=== PATIENT | male | born 1985 | race Caucasian/White ===

== ENCOUNTER 2016-10-15 17:53 | Emergency (ER) | payer SELFPAY ==
[2016-10-15] MEDS ORDERED: Ketorolac INJ* 60 MG/2 ML VIAL IM ONE (18:55)
--- NOTE | 2016-10-15 19:32 | RAD ---
INDICATION: Back pain COMPARISON: None TECHNIQUE: AP and lateral views were obtained . FINDINGS: Bones: There are no acute bony findings. There are no significant osteoarthritic findings. Alignment: Normal Disc spaces: The disc spaces are well-maintained Soft tissues: There are no soft tissue abnormalities. IMPRESSION: NEGATIVE EXAMINATION.
[2016-10-15 19:42] LABS: Urine Bilirubin Negative (Negative); Urine Glucose Negative (Negative); Urine Nitrite Negative (Negative)
[2016-10-15] MEDS ORDERED: Clindamycin CAP* 150 MG PO ONE (19:56)
[2016-10-15] MEDS ORDERED: Cyclobenzaprine TAB* 10 MG PO ONE (19:56)
[2016-10-15 20:09] VITALS: BP 142/73
--- NOTE | 2016-10-15 20:13 | UC ---
General HPI - HPI Summary HPI Summary: 1) TWO WEEKS OF RIGHT LOWER JAW DENTAL PAIN, SAME RECURING DENTAL PAIN 2009, 2010. 2) TWO DAYS OF MID LOW BACK PAIN. 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 NO DYSURIA. NO FEVER. NO ABDOMINAL PAIN. NO KNOWN TRAUMA. NO LOSS OF CONTROL OF BLADDER OR BOWELS. - History of Current Complaint Chief Complaint: EDDentalPain Stated Complaint: BACK/DENTAL PAIN Time Seen by Provider: 10/15/16 18:33 Hx Obtained From: Patient, Family/Social Worker Health Services Onset/Duration: Lasting Days, Lasting Weeks, Still Present Onset Severity: Moderate Current Severity: Moderate Pain Intensity: 8 Associated Signs & Symptoms: Positive: Back Pain, Other - DENTAL PAIN. Negative : Abdominal Pain, Cough, Chest Pain, Dysuria, Edema, Fever, Headache, Nausea, SOB, Trauma, Vomiting - Allergy/Home Medications Allergies/Adverse Reactions: Allergies Allergy/AdvReac Type Severity Reaction Status Date / Time Diphenhydramine Allergy Severe Itching Verified 09/20/16 16:23 [From Benadryl] Amoxicillin Allergy Difficulty Verified 09/20/16 16:23 Breathing/Wheezing Penicillins [PCN] Allergy Difficulty Verified 09/20/16 16:23 Breathing/Wheezing PMH/Surg Hx/FS Hx/Imm Hx Previously Healthy: Yes Endocrine History Of: Denies: Diabetes, Thyroid Disease, Hyperthyroidism, Hypothyroidism, Dyslipidemia Cardiovascular History Of: Denies: Cardiac Disorders, Hypertension, Pacemaker/ICD, Myocardial Infarction , Congestive Heart Failure, Atrial Fibrillation, Deep Vein Thrombosis, Bleeding Disorders Respiratory History Of: Denies: COPD, Asthma, Bronchitis, Pneumonia, Pulmonary Embolism GI/ History Of: Denies: Gastroesophageal Reflux, Ulcer, Gastrointestinal Bleed, Gall Bladder Disease, Kidney Stones, Diverticulitis, Renal Disease, Urosepsis Neurological History Of: Denies: TIA, CVA, Dementia, Seizures, Migraine Psychological History Of: Denies: Anxiety, Depression, Bipolar Disorder, Schizophrenia, Post Traumatic Stress Disorder Cancer History Of: Denies: Lung Cancer, Colorectal Cancer, Breast Cancer, Prostate Cancer, Cervical Cancer Other History Of: Negative For: HIV, Hepatitis B, Hepatitis C - Surgical History Surgical History: None - Family History Known Family History: Positive: None Negative: Renal Disease - Social History Occupation: Employed Full-time Lives: With Family Alcohol Use: Occasionally Substance Use Type: None Smoking Status (MU): Heavy Every Day Tobacco Smoker Type: Cigarettes Amount Used/How Often: 1 ppd Cessation Counseling: Counseled 3+Min - 10 Min Review of Systems Constitutional: Negative Skin: Negative Eyes: Negative ENT: Dental Pain Respiratory: Negative Cardiovascular: Negative Gastrointestinal: Negative Genitourinary: Negative Motor: Negative Neurovascular: Negative Musculoskeletal: Arthralgia - LOW BACK, Myalgia, Other: - POSITIVE STRAIGHT LEG RAISE 20 DEGREES BILT Neurological: Negative Psychological: Negative All Other Systems Reviewed And Are Negative: Yes Physical Exam Triage Information Reviewed: Yes Appearance: Well-Appearing, Well-Nourished, Pain Distress - MILD Vital Signs: Initial Vital Signs Temp 99.8 F 10/15/16 18:09 Pulse 81 10/15/16 18:09 Resp 18 10/15/16 18:09 BP 152/100 10/15/16 18:09 Pulse Ox 98 10/15/16 18:09 Vital Signs Reviewed: Yes Eye Exam: Normal Eyes: Positive: Conjunctiva Clear ENT Exam: Normal ENT: Positive: Normal ENT inspection Dental Exam: Normal Dental: Positive: Percussion Tenderness @ - #32, Gross Decay/Caries @ Neck exam: Normal Neck: Positive: Supple, Nontender, No Lymphadenopathy Respiratory Exam: Normal Respiratory: Positive: Chest non-tender, Lungs clear, Normal breath sounds, No respiratory distress Cardiovascular Exam: Normal Cardiovascular: Positive: RRR, No Murmur Abdominal Exam: Normal Abdomen Description: Positive: Nontender, No Organomegaly Musculoskeletal: Positive: Strength Intact, ROM Intact, No Edema, Other: - TENDER TO PALPATION INFERIOR L SPINE. POS STRAIGHT LEG RAISE TEST BILATERALLY Neurological Exam: Normal Psychological Exam: Normal Psychological: Positive: Normal Response To Family Skin Exam: Normal Course/Dx - Differential Dx - Multi-Symptom Differential Diagnoses: Other - BACK PAIN; DENTAL PAIN Provider Diagnoses: LOW BACK STRAIN. DENTAL PAIN #32 Discharge - Discharge Plan Condition: Stable Disposition: HOME Prescriptions: Clindamycin Cap(NF) [Cleocin 300 mg Cap(NF)] 300 mg PO TID #21 cap Cyclobenzaprine TAB* [Flexeril TAB*] 10 mg PO BID PRN #14 tab PRN Reason: Spasms Patient Education Materials: Dental Caries (ED), Low Back Strain (ED), Muscle Spasm (ED), Toothache (ED) Referrals: [facility] [Outside] [facility] [facility] [Outside] No Primary Care Phys,NOPCP [Primary Care Provider] - Additional Instructions: PHYSICAL THERAPY REFERRAL: You have been prescribed physical therapy. Treatments may include stretching, exercise, application of heat or cold, and other modalities. After an injury, PT can reduce swelling and pain. In recovery, PT is used to restore mobility and strength. Your specific treatment goals are: Reduction of Swelling (EGS, US, ice as needed) __X___ Pain Reduction (EGS, US, ice as needed) TENS Pack Fitting and Instruction Wound Hydrotherapy ___X__ Preservation of Mobility ___X__ Uatsdin of Mobility ___X__ Strength Uatsdin __X___ Work or Sports Hardening This instruction sheet also serves as your PHYSICAL THERAPY REFERRAL! Please take it with you to the therapist, so he/she will be aware of your diagnosis and treatment plan. You may see the physical therapist of your choice for these treatments, but may wish to check with your insurance to be sure the provider you select is covered. It's important to see the doctor to whom you have been referred for follow up. [facility]: 1 - PAIN HERE
== END 2016-10-15 20:09 | disposition home or self-care (01) ==
LOC: ED 17:53
DX: K08.89 Other specified disorders of teeth and supporting structures (principal); S33.5XXA Sprain of ligaments of lumbar spine, initial encounter; F17.210 Nicotine dependence, cigarettes, uncomplicated; Z88.0 Allergy status to penicillin; X58.XXXA Exposure to other specified factors, initial encounter; Y92.9 Unspecified place or not applicable
CPT/HCPCS: 72100; 81003; 96372; 99282; A9270-GY; J1885

== ENCOUNTER 2016-12-28 12:05 | Emergency (ER) | payer SELFPAY ==
[2016-12-28 14:29] VITALS: BP 145/93
--- NOTE | 2016-12-28 17:18 | RAD ---
INDICATION: Chest congestion, tightness, cough 1 week duration. History of tobacco use. COMPARISON: February 13, 2009 TECHNIQUE: Dual energy PA and routine lateral views of the chest were obtained. REPORT: Mild prominence of the interstitial markings and increased lung volumes without change. No alveolar consolidation, focal pulmonary lesion, or pleural effusion evident. Negative for pneumothorax. The heart, pulmonary vasculature, and mediastinal contours are unremarkable. IMPRESSION: Stigmata of probable chronic obstructive pulmonary disease. No evidence for pneumonia.
--- NOTE | 2017-01-22 13:53 | ED ---
Influenza-Like Illness - HPI Summary HPI Summary: Patient presents with CHEST CONGESTION, WHEEZING, COUGH, LARYNGITIS, FATIGUE, CHILLS/SWEATS AT NIGHT X 1 WEEK. He denies known ill contacts. He has tried over the counter medication without relief. He denies CP, SOB, fever, neck pain or MCKEON. - History of Current Complaint Chief Complaint: EDUpperRespComplaint Time Seen by Provider: 12/28/16 12:15 Hx Obtained From: Patient Onset/Duration: Gradual Onset Severity: Moderate Associated Signs & Symptoms: Cough, Nasal Congestion Related Hx: Smoking - Allergy/Home Medications Allergies/Adverse Reactions: Allergies Allergy/AdvReac Type Severity Reaction Status Date / Time Diphenhydramine Allergy Severe Itching Verified 09/20/16 16:23 [From Benadryl] Amoxicillin Allergy Difficulty Verified 09/20/16 16:23 Breathing/Wheezing Penicillins [PCN] Allergy Difficulty Verified 09/20/16 16:23 Breathing/Wheezing PMH/Surg Hx/FS Hx/Imm Hx Endocrine/Hematology History: Denies: Hx Diabetes, Hx Thyroid Disease Cardiovascular History: Denies: Hx Congestive Heart Failure, Hx Deep Vein Thrombosis, Hx Hypertension , Hx Myocardial Infarction, Hx Pacemaker/ICD Respiratory History: Denies: Hx Asthma, Hx Chronic Obstructive Pulmonary Disease (COPD), Hx Lung Cancer, Hx Pneumonia, Hx Pulmonary Embolism, Other Respiratory Problems/ Disorders GI History: Denies: Hx Gall Bladder Disease, Hx Gastrointestinal Bleed, Hx Ulcer, Hx Urosepsis History: Denies: Hx Kidney Stones, Hx Renal Disease Sensory History: Denies: Hx Contacts or Glasses Opthamlomology History: Denies: Hx Contacts or Glasses Neurological History: Denies: Hx Dementia, Hx Migraine, Hx Seizures, Hx Transient Ischemic Attacks (TIA) Psychiatric History: Reports: Hx of Violent Episodes Against Others Denies: Hx Anxiety, Hx Eating Disorder, Hx Depression, Hx Schizophrenia, Hx Bipolar Disorder Infectious Disease History: No Infectious Disease History: Denies: History Other Infectious Disease, Traveled Outside the [place] in Last 30 Days - Family History Known Family History: Positive: None Negative: Renal Disease - Social History Occupation: Employed Full-time Lives: With Family Alcohol Use: Occasionally Substance Use Type: Reports: None Smoking Status (MU): Heavy Every Day Tobacco Smoker Type: Cigarettes Amount Used/How Often: 1 ppd Cessation Counseling: Patient Advised to Stop Review of Systems Positive: Chills, Fatigue Positive: Nasal Discharge Positive: Cough Negative: Abdominal Pain, Vomiting, Diarrhea, Nausea Negative: Myalgia Negative: Headache, Weakness All Other Systems Reviewed And Are Negative: Yes Physical Exam Triage Information Reviewed: Yes Vital Signs On Initial Exam: Initial Vitals Temp Pulse Resp BP Pulse Ox 97.1 F 99 16 148/88 98 12/28/16 12:07 12/28/16 12:07 12/28/16 12:07 12/28/16 12:07 12/28/16 12:07 Vital Signs Reviewed: Yes Appearance: Positive: Well-Appearing, No Pain Distress, Well-Nourished Skin: Positive: Warm, Skin Color Reflects Adequate Perfusion, Dry, Soft Head/Face: Positive: Normal Head/Face Inspection Eyes: Positive: EOMI, JOSE, Conjunctiva Clear ENT: Positive: Hearing grossly normal, Pharyngeal erythema, Nasal congestion, TMs normal. Negative: Tonsillar swelling, Tonsillar exudate Neck: Positive: Supple, Nontender, No Lymphadenopathy Respiratory/Lung Sounds: Positive: Clear to Auscultation, Breath Sounds Present. Negative: Rales, Rhonchi, Wheezes Cardiovascular: Positive: RRR Abdomen Description: Positive: Nontender, Soft Bowel Sounds: Positive: Present Musculoskeletal: Negative: Edema Left, Edema Right Neurological: Positive: Sensory/Motor Intact, Alert, Oriented to Person Place, Time, [place] Bundle Intact Distally, Normal Gait Psychiatric: Positive: Affect/Mood Appropriate AVPU Assessment: Alert Diagnostics - Vital Signs Vital Signs Temp Pulse Resp BP Pulse Ox 12/28/16 14:28 98.6 F 71 16 145/93 12/28/16 12:17 98.7 F 84 16 146/91 93 12/28/16 12:07 97.1 F 99 16 148/88 98 - Laboratory Lab Results: Lab Results 12/28/16 12/28/16 Range/Units 11:54 12:52 Influenza A (Rapid) Negative (Negative) Influenza B (Rapid) Negative (Negative) Group A Strep Rapid Negative (Negative) Lab Statement: Any lab studies that have been ordered have been reviewed, and results considered in the medical decision making process. - Radiology No standard instances Xray Interpretation: No Acute Changes Radiology Interpretation Completed By: Radiologist Flu Symptom Course/Dx - Diagnoses Differential Diagnosis/HQI/PQRI: Positive: Bronchitis, Broncholiolitis, Influenza, Pneumonia, Upper Respiratory Infection Provider Diagnoses: Pharyngitis Discharge - Discharge Plan Condition: Stable Disposition: HOME Patient Education Materials: Pharyngitis (ED) Forms: *Work Release Referrals: No Primary Care Phys,NOPCP [Primary Care Provider] - Additional Instructions: Please use over the counter medication to help with your symptoms.
== END 2016-12-28 14:28 | disposition home or self-care (01) ==
LOC: ED 12:05
DX: J02.9 Acute pharyngitis, unspecified (principal); R05 Cough; R09.81 Nasal congestion; R11.2 Nausea with vomiting, unspecified; R19.7 Diarrhea, unspecified; R10.9 Unspecified abdominal pain
CPT/HCPCS: 71020; 87502; 87651; 99282

== ENCOUNTER 2017-05-14 04:51 | Emergency (ER) | payer SELFPAY ==
[2017-05-14 05:06] VITALS: BP 184/102
[2017-05-14] MEDS ORDERED: Clindamycin CAP* 150 MG PO ONE (05:52)
[2017-05-14] MEDS ORDERED: HYDROcodone/ACETAMIN 5-325 MG* 1 TAB PO ONE (05:52)
--- NOTE | 2017-05-14 07:00 | ED ---
I, Cristhian,Shelley, scribed for Charly Valdez MD on 05/14/17 at 0554 . Throat Pain/Nasal Congestion - HPI Summary HPI Summary: This 31 y/o male presents to ED for left bottom dental since "some time ago". Pain radiates down to jaw and up to left ear. Filling has fallen out since the time of onset. Pt took IBP without much relief. Pt is currently requesting abx and pain med with urgent rx, stating that pt currently does not have any insurance. Pt is current heavy everyday smoker. Allergy information involving PCN and amoxicillin is reviewed and confirmed with pt. - History of Current Complaint Chief Complaint: EDDentalPain Time Seen by Provider: 05/14/17 05:46 Hx Obtained From: Patient, Medical Records Onset/Duration: Gradual Onset, Still Present Cough: None - Allergies/Home Medications Allergies/Adverse Reactions: Allergies Allergy/AdvReac Type Severity Reaction Status Date / Time Diphenhydramine Allergy Severe Itching Verified 09/20/16 16:23 [From Benadryl] Amoxicillin Allergy Difficulty Verified 09/20/16 16:23 Breathing/Wheezing Penicillins [PCN] Allergy Difficulty Verified 09/20/16 16:23 Breathing/Wheezing PMH/Surg Hx/FS Hx/Imm Hx Endocrine/Hematology History: Denies: Hx Diabetes, Hx Thyroid Disease Cardiovascular History: Denies: Hx Congestive Heart Failure, Hx Deep Vein Thrombosis, Hx Hypertension , Hx Myocardial Infarction, Hx Pacemaker/ICD Respiratory History: Denies: Hx Asthma, Hx Chronic Obstructive Pulmonary Disease (COPD), Hx Lung Cancer, Hx Pneumonia, Hx Pulmonary Embolism, Other Respiratory Problems/ Disorders GI History: Denies: Hx Gall Bladder Disease, Hx Gastrointestinal Bleed, Hx Ulcer, Hx Urosepsis History: Denies: Hx Kidney Stones, Hx Renal Disease Sensory History: Denies: Hx Contacts or Glasses Opthamlomology History: Denies: Hx Contacts or Glasses Neurological History: Denies: Hx Dementia, Hx Migraine, Hx Seizures, Hx Transient Ischemic Attacks (TIA) Psychiatric History: Reports: Hx of Violent Episodes Against Others Denies: Hx Anxiety, Hx Eating Disorder, Hx Depression, Hx Schizophrenia, Hx Bipolar Disorder Infectious Disease History: No Infectious Disease History: Denies: History Other Infectious Disease, Traveled Outside the [place] in Last 30 Days - Family History Known Family History: Negative: Renal Disease - Social History Alcohol Use: Occasionally Hx Substance Use: Yes Substance Use Type: Reports: Marijuana Substance Use Comment - Amount & Last Used: 05/13/17 Hx Tobacco Use: Yes Smoking Status (MU): Heavy Every Day Tobacco Smoker Type: Cigarettes Amount Used/How Often: 1 ppd Review of Systems Negative: Fever Positive: Dental Pain All Other Systems Reviewed And Are Negative: Yes Physical Exam - Summary Physical Exam Summary: The patient is well-nourished in no acute distress and in no acute pain. The skin is warm and dry and skin color reflects adequate perfusion. HEENT: The head is normocephalic and atraumatic. The pupils are equal and reactive. The conjunctivae are clear and without drainage. Nares are patent and without drainage. Mouth reveals moist mucous membranes and the throat is without erythema and exudate. The external ears are intact. The ear canals are patent and without drainage. The tympanic membranes are intact. Left bottom posterior tooth with gingivitis and caries. Mild adenopathy at left side of neck. Neck is supple with full range of motion and non-tender. There are no carotid bruits. There is no neck vein distension. Respiratory: Chest is non-tender. Breathing nonlabored. Musculoskeletal: There is no back pain noted. Extremities are non-tender with full range of motion. There is good capillary refill. There is no peripheral edema or calf tenderness elicited. Neurological: Patient is alert and oriented to person, place and time. The patient has symmetrical motor strength in all four extremities. Cranial nerves are grossly intact. Deep tendon reflexes are symmetrical and equal in all four extremities. Psychiatric: The patient has an appropriate affect and does not exhibit any anxiety or depression. Triage Information Reviewed: Yes Vital Signs On Initial Exam: Initial Vitals Temp Pulse Resp BP Pulse Ox 98 F 56 16 184/102 98 05/14/17 05:03 05/14/17 05:03 05/14/17 05:03 05/14/17 05:03 05/14/17 05:03 Vital Signs Reviewed: Yes Diagnostics - Vital Signs Vital Signs Temp Pulse Resp BP Pulse Ox 05/14/17 05:03 98 F 56 16 184/102 98 - Laboratory Lab Statement: Any lab studies that have been ordered have been reviewed, and results considered in the medical decision making process. EENT Course/Dx - Course Assessment/Plan: This 31 y/o male presents to ED for chronic dental pain since his dental filling out "some time ago". IBP provides little relief. Upon examination pt is noted with gingivitis and dental caries at left lower posterior tooth. Pt is discharged with [place] and clindamycin rx and outpatient follow up. - Diagnoses Provider Diagnoses: Chronic dental pain Discharge - Discharge Plan Condition: Stable Disposition: HOME Prescriptions: Clindamycin Cap(NF) [Clindamycin Cap 300 mg Cap(NF)] 300 mg PO TID #21 cap HYDROcodone/ACETAMIN 5-325 MG* [[place] 5-325 TAB*] 1 tab PO Q6H PRN #20 tab MDD 4 PRN Reason: pain Patient Education Materials: Hydrocodone/Acetaminophen (By mouth), Clindamycin (By mouth), Toothache (ED) Referrals: [facility] [Outside] - 2 Days The documentation as recorded by the Cristhian taylor Soohyun accurately reflects the service I personally performed and the decisions made by me, Charly Valdez MD.
== END 2017-05-14 06:16 | disposition home or self-care (01) ==
LOC: ED 04:51
DX: K08.89 Other specified disorders of teeth and supporting structures (principal); K02.9 Dental caries, unspecified; Z88.0 Allergy status to penicillin; F12.90 Cannabis use, unspecified, uncomplicated; F17.210 Nicotine dependence, cigarettes, uncomplicated
CPT/HCPCS: 99282; A9270-GY

== ENCOUNTER 2017-06-09 01:05 | Emergency (ER) | payer SELFPAY ==
[2017-06-09] MEDS ORDERED: HYDROcodone/ACETAMIN 5-325 MG* 1 TAB PO ONE (02:03)
[2017-06-09] MEDS ORDERED: Clindamycin CAP* 150 MG PO ONE (02:03)
--- NOTE | 2017-06-09 02:14 | ED ---
Throat Pain/Nasal Congestion - HPI Summary HPI Summary: 31 male presents to ED with complaints of dental pain for the past 3 days that has been worsening. Patient states he has had prior pain in the past, had a filling, however thinks it fell out. Has been taking ibuprofen without relief. No discharge, swelling or bleeding. Denies difficulty swallowing and breathing. Does not want it to get infected. Denies fever/chills. No other complaints. No PMHx. Plans on making appointment with dentist when insurance kicks in. - History of Current Complaint Chief Complaint: EDDentalPain Time Seen by Provider: 06/09/17 01:43 Hx Obtained From: Patient Onset/Duration: Sudden Onset, Lasting Days, Still Present, Worse Since Severity: Moderate Cough: None - Allergies/Home Medications Allergies/Adverse Reactions: Allergies Allergy/AdvReac Type Severity Reaction Status Date / Time Diphenhydramine Allergy Severe Itching Verified 06/09/17 01:11 [From Benadryl] Amoxicillin Allergy Difficulty Verified 06/09/17 01:11 Breathing/Wheezing Penicillins [PCN] Allergy Difficulty Verified 06/09/17 01:11 Breathing/Wheezing PMH/Surg Hx/FS Hx/Imm Hx Endocrine/Hematology History: Denies: Hx Diabetes, Hx Thyroid Disease Cardiovascular History: Denies: Hx Congestive Heart Failure, Hx Deep Vein Thrombosis, Hx Hypertension , Hx Myocardial Infarction, Hx Pacemaker/ICD Respiratory History: Denies: Hx Asthma, Hx Chronic Obstructive Pulmonary Disease (COPD), Hx Lung Cancer, Hx Pneumonia, Hx Pulmonary Embolism, Other Respiratory Problems/ Disorders GI History: Denies: Hx Gall Bladder Disease, Hx Gastrointestinal Bleed, Hx Ulcer, Hx Urosepsis History: Denies: Hx Kidney Stones, Hx Renal Disease Sensory History: Denies: Hx Contacts or Glasses Opthamlomology History: Denies: Hx Contacts or Glasses Neurological History: Denies: Hx Dementia, Hx Migraine, Hx Seizures, Hx Transient Ischemic Attacks (TIA) Psychiatric History: Reports: Hx of Violent Episodes Against Others Denies: Hx Anxiety, Hx Eating Disorder, Hx Depression, Hx Schizophrenia, Hx Bipolar Disorder - Surgical History Surgery Procedure, Year, and Place: n/a - Immunization History Immunizations Up to Date: Yes Infectious Disease History: No Infectious Disease History: Denies: History Other Infectious Disease, Traveled Outside the [place] in Last 30 Days - Family History Known Family History: Positive: None Negative: Renal Disease - Social History Alcohol Use: Occasionally Hx Substance Use: Yes Substance Use Type: Reports: Marijuana Substance Use Comment - Amount & Last Used: 05/13/17 Hx Tobacco Use: Yes Smoking Status (MU): Heavy Every Day Tobacco Smoker Type: Cigarettes Amount Used/How Often: 1 ppd Review of Systems Constitutional: Negative Positive: Dental Pain Cardiovascular: Negative Respiratory: Negative Skin: Negative Neurological: Negative All Other Systems Reviewed And Are Negative: Yes Physical Exam Triage Information Reviewed: Yes Vital Signs On Initial Exam: Initial Vitals Temp Pulse Resp BP Pulse Ox 97.6 F 77 16 150/94 97 06/09/17 01:05 06/09/17 01:05 06/09/17 01:05 06/09/17 01:05 06/09/17 01:05 Vital Signs Reviewed: Yes Appearance: Positive: Well-Appearing, Well-Nourished, Pain Distress - mild, holding left cheek Skin: Positive: Warm, Skin Color Reflects Adequate Perfusion, Dry. Negative: Cold, Cyanosis @, Pale, Erythema @ Head/Face: Positive: Normal Head/Face Inspection Eyes: Positive: Conjunctiva Clear ENT: Positive: Normal ENT inspection, Hearing grossly normal, Pharynx normal, TMs normal. Negative: Tonsillar swelling, Tonsillar exudate Dental: Positive: Gross Decay/Caries @, Dental Fracture @. Negative: Abscess @ , Cellulitis @, Cervical Lymphadenopathy Neck: Positive: Supple, Nontender, No Lymphadenopathy Respiratory/Lung Sounds: Positive: Clear to Auscultation, Breath Sounds Present. Negative: Rales, Rhonchi, Wheezes Cardiovascular: Positive: Normal, RRR, Pulses are Symmetrical in both Upper and Lower Extremities. Negative: Murmur, Rub Musculoskeletal: Positive: Normal, Strength/ROM Intact Neurological: Positive: Normal, Sensory/Motor Intact, Alert, Oriented to Person Place, Time Psychiatric: Positive: Normal Diagnostics - Vital Signs Vital Signs Temp Pulse Resp BP Pulse Ox 06/09/17 01:35 98.5 F 84 16 147/89 98 06/09/17 01:05 97.6 F 77 16 150/94 97 - Laboratory Lab Statement: Any lab studies that have been ordered have been reviewed, and results considered in the medical decision making process. EENT Course/Dx - Course Course Of Treatment: Given pain management and first antibotic dose in ED. Continue at home with ibuprofen, salt water swsihes, good oral hygeine, cool compresses and dentist follow up. No concernf or abscess at this time. aware of worsening signs and symptoms to watch out for. I stop Reference #: [id number] - Differential Diagnoses Differential Diagnoses: Dental Abscess, Dental Caries, Fractured Tooth - Diagnoses Provider Diagnoses: Pain, dental, Fractured tooth Discharge - Discharge Plan Condition: Stable Disposition: HOME Prescriptions: Clindamycin Cap(NF) [Clindamycin Cap 300 mg Cap(NF)] 300 mg PO TID #21 cap HYDROcodone/ACETAMIN 5-325 MG* [[place] 5-325 TAB*] 1 tab PO Q4H PRN #10 tab MDD 3 PRN Reason: Pain Patient Education Materials: Clindamycin (By mouth), Hydrocodone/Acetaminophen (By mouth), Toothache (ED) Forms: *Work Release Referrals: [facility] [place] [facility] [place] [facility] [Outside] No Primary Care Phys,NOPCP [Primary Care Provider] - Additional Instructions: Take prescribed medication as directed for pain and infection. Recommend taking probiotics or eating chilean yogurt in between antibiotic doses. Keep good oral hygiene. Swish with salt water multiple times daily. Drink plenty of fluids. Continue ibuprofen for pain and inflammation. Follow up with Dentist. Use topical medication as discussed. If symptoms worsen or new symptoms develop please seek medical attention promptly.
[2017-06-09 02:44] VITALS: BP 132/70
== END 2017-06-09 02:22 | disposition home or self-care (01) ==
LOC: ED 01:05
DX: S02.5XXA Fracture of tooth (traumatic), initial encounter for closed fracture (principal); K08.89 Other specified disorders of teeth and supporting structures; F17.210 Nicotine dependence, cigarettes, uncomplicated; X58.XXXA Exposure to other specified factors, initial encounter; Y93.9 Activity, unspecified; Y92.9 Unspecified place or not applicable
CPT/HCPCS: 99282

== ENCOUNTER 2017-10-02 17:49 | Emergency (ER) | payer SELFPAY ==
[2017-10-02] MEDS ORDERED: Ketorolac INJ* 60 MG/2 ML VIAL IM ONE (18:26)
--- NOTE | 2017-10-02 18:54 | ED ---
Throat Pain/Nasal Congestion - HPI Summary HPI Summary: Patient arrives to ED with CC of pain over bilateral lower molars radiating to the jaw and ear. Denies trismus, drooling or dysphagia. Pain is 10/10, sharp and throbbing. Denies airway compromise or SOB. Denies ear pain, eye pain, blurry vision or double vision. Otherwise healthy. Pain is worse with chewing and cold drinks, better with ibuprofen, but only improves slightly. Patient denies dental care and denies a dentist in the area. He does not have health insurance. - History of Current Complaint Chief Complaint: EDDentalPain Time Seen by Provider: 10/02/17 18:06 Hx Obtained From: Patient Onset/Duration: Gradual Onset Severity: Moderate Associated Signs And Symptoms: Positive: Negative - Epiglottits Risk Factors Epiglottis Risk Factors: Negative - Allergies/Home Medications Allergies/Adverse Reactions: Allergies Allergy/AdvReac Type Severity Reaction Status Date / Time Diphenhydramine Allergy Severe Itching Verified 10/02/17 17:57 [From Benadryl] Amoxicillin Allergy Difficulty Verified 10/02/17 17:57 Breathing/Wheezing Penicillins [PCN] Allergy Difficulty Verified 10/02/17 17:57 Breathing/Wheezing PMH/Surg Hx/FS Hx/Imm Hx Previously Healthy: Yes Endocrine/Hematology History: Denies: Hx Diabetes, Hx Thyroid Disease Cardiovascular History: Denies: Hx Congestive Heart Failure, Hx Deep Vein Thrombosis, Hx Hypertension , Hx Myocardial Infarction, Hx Pacemaker/ICD Respiratory History: Denies: Hx Asthma, Hx Chronic Obstructive Pulmonary Disease (COPD), Hx Lung Cancer, Hx Pneumonia, Hx Pulmonary Embolism, Other Respiratory Problems/ Disorders GI History: Denies: Hx Gall Bladder Disease, Hx Gastrointestinal Bleed, Hx Ulcer, Hx Urosepsis History: Denies: Hx Kidney Stones, Hx Renal Disease Sensory History: Denies: Hx Contacts or Glasses Opthamlomology History: Denies: Hx Contacts or Glasses Neurological History: Denies: Hx Dementia, Hx Migraine, Hx Seizures, Hx Transient Ischemic Attacks (TIA) Psychiatric History: Reports: Hx of Violent Episodes Against Others Denies: Hx Anxiety, Hx Eating Disorder, Hx Depression, Hx Schizophrenia, Hx Bipolar Disorder - Surgical History Surgery Procedure, Year, and Place: n/a - Immunization History Hx Pertussis Vaccination: No Immunizations Up to Date: Unable to Obtain/Confirm Infectious Disease History: No Infectious Disease History: Denies: History Other Infectious Disease, Traveled Outside the [place] in Last 30 Days - Family History Known Family History: Positive: None Negative: Renal Disease - Social History Occupation: Unemployed Lives: With Family Alcohol Use: Occasionally Hx Substance Use: Yes Substance Use Type: Reports: Marijuana Substance Use Comment - Amount & Last Used: 05/13/17 Hx Tobacco Use: Yes Smoking Status (MU): Heavy Every Day Tobacco Smoker Type: Cigarettes Amount Used/How Often: 1 ppd Review of Systems Constitutional: Negative Negative: Fever, Chills, Fatigue Eyes: Negative Positive: Dental Pain Cardiovascular: Negative Genitourinary: Negative Positive: no symptoms reported, see HPI Musculoskeletal: Negative Neurological: Negative All Other Systems Reviewed And Are Negative: Yes Physical Exam Triage Information Reviewed: Yes Vital Signs On Initial Exam: Initial Vitals Temp Pulse Resp BP Pulse Ox 98.6 F 83 19 150/86 95 10/02/17 17:55 10/02/17 17:55 10/02/17 17:55 10/02/17 17:55 10/02/17 17:55 Vital Signs Reviewed: Yes Appearance: Positive: Well-Appearing, Well-Nourished Skin: Positive: Warm, Skin Color Reflects Adequate Perfusion Head/Face: Positive: Normal Head/Face Inspection Eyes: Positive: EOMI, JOSE, Conjunctiva Clear ENT: Positive: Pharynx normal, Dental tenderness Dental: Positive: Percussion Tenderness @ - bilateral lower molars, Gross Decay/ Caries @, Dental Fracture @ Neck: Positive: No Lymphadenopathy Respiratory/Lung Sounds: Positive: Clear to Auscultation, Breath Sounds Present Cardiovascular: Positive: RRR, Pulses are Symmetrical in both Upper and Lower Extremities Musculoskeletal: Positive: Strength/ROM Intact Neurological: Positive: Sensory/Motor Intact, Alert, Oriented to Person Place, Time, Speech Normal Psychiatric: Positive: Normal, Affect/Mood Appropriate - [place] Coma Scale Coma Scale Total: 15 Diagnostics - Vital Signs Vital Signs Temp Pulse Resp BP Pulse Ox 10/02/17 17:55 98.6 F 83 19 150/86 95 - Laboratory Lab Statement: Any lab studies that have been ordered have been reviewed, and results considered in the medical decision making process. EENT Course/Dx - Course Course Of Treatment: No dental abscess or lesions seen over area of concern. Erythema at site of pain. No drainage from area. Several dental caries, cavities, crowding and broken teeth throughout. Pain on palpation over mandible. No TMJ tenderness. No pain with opening and closing mouth. Poor dental hygiene and outpatient dental care. Will treat for possible dental infection/abscess based on symptoms of pain and radiation to jaw and ear. No allergies. Will treat with clindamycin as he is pen allergic. He is given tramadol x 3 days for pain not well controlled with ibuprofen. Patient to follow up immediately with dentist. Assessment/Plan: Given dentists in the area. - Differential Diagnoses Differential Diagnoses: Dental Abscess, Dental Caries - Diagnoses Provider Diagnoses: Pain, dental Discharge - Discharge Plan Condition: Stable Disposition: HOME Prescriptions: Clindamycin Cap(NF) [Clindamycin Cap 300 mg Cap(NF)] 300 mg PO QID #20 cap traMADol TAB* [Ultram*] 50 mg PO Q12H PRN #6 tab MDD 2 PRN Reason: Pain Patient Education Materials: Toothache (ED) Referrals: No Primary Care Phys,NOPCP [Primary Care Provider] - Additional Instructions: Please follow up with a dentist AUDREY I have given you a list of dentists in the area. I have given you Tramadol as Toradol is not covered by [facility]. Please take twice daily for pain not well controlled with 600mg ibuprofen 3x daily
[2017-10-02 19:02] VITALS: BP 144/86
== END 2017-10-02 19:01 | disposition home or self-care (01) ==
LOC: ED 17:49
DX: K08.89 Other specified disorders of teeth and supporting structures (principal)
CPT/HCPCS: 96372; 99282; J1885

== ENCOUNTER 2019-06-16 13:00 | Emergency (ER) | payer OTHER ==
[2019-06-16 13:20] VITALS: BP 145/98
--- NOTE | 2019-06-16 14:19 | UC ---
Back Pain HPI - HPI Summary HPI Summary: Patient is a 33yo male presenting with lower back pain x3 days that has worsened today. Described the pain as constant throbbing with intermittent episodes of tightening. States he heard a pop this morning in his lower back when he was getting dressed. Denies radiation of pain. Denies numbness and tingling. Denies neck pain. Denies difficulty or changes in urination and BMs. Denies headache. Denies changes in vision. Patient is able to walk and states pain is better when he is standing and walking and worse with sitting. States he took aspirin two hours ago to help the pain. Patient denies injury or trauma to his back. - History of Current Complaint Chief Complaint: UCBackPain Stated Complaint: BACK PAIN Hx Obtained From: Patient Onset/Duration: Gradual Onset, Lasting Days Timing: Constant Severity Initially: Severe Severity Currently: Severe Pain Intensity: 10 Pain Scale Used: 0-10 Numeric Character: Throbbing, Spasmodic - Allergies/Home Medications Allergies/Adverse Reactions: Allergies Allergy/AdvReac Type Severity Reaction Status Date / Time amoxicillin Allergy Difficulty Verified 06/16/19 13:20 Swallowing Penicillins Allergy Hives Verified 06/16/19 13:20 diphenhydramine AdvReac Intermediate Itching Verified 06/16/19 13:20 [From Benadryl] Home Medications: Home Medications Aspirin 8 tab PO ONCE PRN 06/16/19 [History Confirmed 06/16/19] PMH/Surg Hx/FS Hx/Imm Hx Other History Of: Negative For: HIV, Hepatitis B, Hepatitis C - Surgical History Surgical History: Yes Surgery Procedure, Year, and Place: n/a - Family History Known Family History: Positive: None Negative: Renal Disease - Social History Alcohol Use: Occasionally Substance Use Type: Marijuana Substance Use Comment - Amount & Last Used: 05/13/17 Smoking Status (MU): Heavy Every Day Tobacco Smoker Type: Cigarettes Amount Used/How Often: 1 ppd Household Exposure Type: Cigarettes Review of Systems All Other Systems Reviewed And Are Negative: Yes Constitutional: Positive: Negative. Negative: Fever, Chills, Fatigue Skin: Positive: Negative. Negative: Bruising Eyes: Positive: Negative. Negative: Blurred Vision, Diplopia, Photophobia ENT: Positive: Negative Respiratory: Positive: Negative. Negative: Shortness Of Breath, Cough Cardiovascular: Positive: Negative. Negative: Palpitations, Chest Pain Gastrointestinal: Positive: Negative. Negative: Abdominal Pain, Vomiting, Diarrhea, Nausea Genitourinary: Positive: Negative Motor: Positive: Decreased ROM. Negative: Weakness Neurovascular: Negative: Decreased Sensation Musculoskeletal: Positive: Decreased ROM, Myalgia. Negative: Edema Neurological: Negative: Headache, Weakness, Paresthesia, Numbness Physical Exam Triage Information Reviewed: Yes Appearance: Well-Appearing, Well-Nourished, Pain Distress Vital Signs: Initial Vital Signs Temp 97.7 F 06/16/19 13:16 Pulse 68 06/16/19 13:16 Resp 18 06/16/19 13:16 BP 145/98 06/16/19 13:16 Pulse Ox 98 06/16/19 13:16 Vital Signs Reviewed: Yes Eyes: Positive: Conjunctiva Clear ENT: Positive: Hearing grossly normal Neck exam: Normal Neck: Positive: Supple, Nontender Respiratory: Positive: No respiratory distress Abdomen Description: Negative: CVA Tenderness (R), CVA Tenderness (L) Musculoskeletal: Positive: Strength Intact, No Edema, ROM Limited @ - limited ability to flex or extend at the hips, Other: - tenderness to palpation of bilateral lumbar back. no midline tenderness Neurological: Positive: Alert, Muscle Tone Normal Psychological: Positive: Age Appropriate Behavior Skin Exam: Normal Skin: Positive: Other - no ecchymosis noted Diagnostics - Radiology lumbar xray Radiology Interpretation Completed By: Radiologist Summary of Radiographic Findings: IMPRESSION: STRAIGHTENING OF THE LUMBAR LORDOSIS. Back Pain Course/Dx - Course Course Of Treatment: Discussed with the patient that his xray did not show evidence of fracture. Discussed the straightening of his lumbar spine. I treated the patient with flexeril for his muscle spasms. Instructed him to use heat to help relax muscles. He may also use ibuprofen for pain relief. Instructed patient to follow up with his PCP if his symptoms persist. Instructed him to go to the emergency room if he experiences difficulty walking or using the bathroom, or if he experiences numbness or tingling. Patient voiced understanding and agreed to treatment plan. - Differential Dx/Diagnosis Provider Diagnosis: Spasm of muscle of lower back Discharge ED - Sign-Out/Discharge Documenting (check all that apply): Patient Departure All imaging exams completed and their final reports reviewed: Yes - Discharge Plan Condition: Stable Disposition: HOME Prescriptions: Cyclobenzaprine TAB* [Flexeril 10 MG TAB*] 10 mg PO BID PRN #14 tab PRN Reason: Spasms Ibuprofen TAB* [Advil TAB*] 400 mg PO Q6H PRN #90 tab PRN Reason: Pain - Moderate Patient Education Materials: Muscle Spasm (ED) Forms: *Work Release Referrals: [facility] [Outside] - If Needed [facility] REFERRAL [Outside] - If Needed Additional Instructions: As discussed, your xrays did not show any fractures. Take Flexeril as prescribed for muscle spasms. Rest, ice, heat, and take ibuprofen as directed to help alleviate pain symptoms. Refrain from physical activity until pain has resolved. If symptoms persist or worsen, follow up with the [facility] or Physician Referral as listed below. - Billing Disposition and Condition Condition: STABLE Disposition: Home
== END 2019-06-16 15:00 | disposition home or self-care (01) ==
LOC: UCEAST 13:00
DX: M62.830 Muscle spasm of back (principal); F17.210 Nicotine dependence, cigarettes, uncomplicated; Z79.82 Long term (current) use of aspirin; Z88.0 Allergy status to penicillin
CPT/HCPCS: 72100; 99212; G0463